=== PATIENT | female | born 1985 | race Hispanic/Latino ===

== ENCOUNTER 2018-08-18 00:28 | Emergency (ER) | payer OTHER ==
[2018-08-18 02:04] LABS: Absolute Lymphocytes (CBC) 2.7 K/uL (0.7-4.9); Absolute Monocytes 0.5 K/uL (0.1-1.3); Absolute Neutrophil 4.7 K/uL (1.8-8.0); Basophils % 0.8 % (0-1.3); Eosinophils % 2.3 % (0-4.4); Hematocrit 36.9 % (36.0-45.0); Lymphocytes % 33.2 % (15.3-44.8); MPV 9.5 fL (7.6-11.3); Monocytes % 6.1 % (3.3-12.3); RBC Red Blood Cell Count 4.23 M/uL (3.86-4.86)
[2018-08-18 02:15] LABS: BUN Blood Urea Nitrogen 7 mg/dL (7-18); Bicarbonate 28 mmol/L (21-32); Glucose Level 88 mg/dL (74-106); HCG, Quantitative 11 mIU/mL (1-3); Potassium 3.3 mmol/L (3.5-5.1); Sodium Level 143 mmol/L (136-145)
--- NOTE | 2018-08-18 02:58 | EDPHYS ---
Physician Documentation [facility] Name: Lani Davis Age: 33 yrs Sex: Female : 1985 Arrival Date: 08/18/2018 Time: 00:35 Bed 14 Private MD: ED Physician Bertrand Gagnon HPI: 08/18 03:12 This 33 yrs old Female presents to ER via Ambulatory with complaints of Vaginal tw4 Bleeding. 03:12 The patient presents with vaginal bleeding that is light. tw4 03:13 Onset: The symptoms/episode began/occurred 3 day(s) ago. Modifying factors: The tw4 symptoms are alleviated by nothing, the symptoms are aggravated by nothing. Associated signs and symptoms: The patient has no apparent associated signs or symptoms. Severity of symptoms: At their worst the symptoms were very mild. The patient has not experienced similar symptoms in the past. 03:13 Pt is not having abdominal pain or vaginal bleeding currently. 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 - Social history:: Smoking status: Patient/guardian denies using tobacco. - Ebola Screening: : No symptoms or risks identified at this time. ROS: 03:13 Positive for vaginal bleeding, Negative for injury or acute deformity, hematuria, tw4 pelvic pain, flank pain, burning with urination, difficulty urinating, bladder incontinence. 03:13 Constitutional: Negative for fever, chills, and weight loss, Cardiovascular: Negative for chest pain, palpitations, and edema, Respiratory: Negative for shortness of breath, cough, wheezing, and pleuritic chest pain, Abdomen/GI: Negative for abdominal pain, nausea, vomiting, diarrhea, and constipation, Back: Negative for injury and pain. Exam: 03:13 Constitutional: This is a well developed, well nourished patient who is awake, alert, tw4 and in no acute distress. Neuro: Awake and alert, GCS 15, oriented to person, place, time, and situation. Cranial nerves II-XII grossly intact. Motor strength 5/5 in all extremities. Sensory grossly intact. Cerebellar exam normal. Normal gait. Vital Signs: 01:27 BP 124 / 91; Pulse 72; Resp 16; Temp 98.5(O); Pulse Ox 100% on R/A; Weight 81.65 kg ak1 (R); Height 5 ft. 2 in. (157.48 cm) (R); Pain 6/10; 01:27 Body Mass Index 32.92 (81.65 kg, 157.48 cm) ak1 MDM: 01:18 Patient medically screened. 03:13 Data reviewed: vital signs, nurses notes. ED course: Pt was upset that she did not tw4 receive an ultrasound. Pt also stated that she felt that she needed an ultrasound because her previous physician told her that she was . I explained to patient that her urine as well as her serum test was negative. "Well cant I get the ultrasound just to make sure because my doctor told me that I was ". I told the patient that it was necessary to order an ultrasound in this case. Pt decided leave , refused exam and was belligerent to staff and did not sign her discharge papers.. 08/18 01:19 Order name: Quantitative Hcg; Complete Time: 02:25 08/18 02:25 Interpretation: Abnormal. 08/18 01:19 Order name: Abo/rh Typing 08/18 01:19 Order name: Basic Metabolic Panel; Complete Time: 02:26 08/18 01:19 Order name: CBC with Diff 08/18 02:20 Order name: Urine Dipstick--Ancillary (enter results) 08/18 02:20 Order name: Urine --Ancillary (enter results) 08/18 01:19 Order name: Urine Test (obtain specimen); Complete Time: 01:51 08/18 01:19 Order name: IV Saline Lock; Complete Time: 01:50 08/18 01:19 Order name: Labs collected and sent; Complete Time: 01:50 08/18 01:19 Order name: NPO; Complete Time: 01:23 08/18 01:19 Order name: Urine Dipstick-Ancillary (obtain specimen); Complete Time: 01:49 tw4 Administered Medications: No medications were administered Disposition: 08/18/18 02:57 Discharged to Home. Impression: Other abnormal uterine and vaginal bleeding. - Condition is Stable. - Discharge Instructions: Dysfunctional Uterine Bleeding. - Medication Reconciliation Form, Thank You Letter, Antibiotic Education, Prescription Opioid Use form. - Follow up: Private Physician; When: Upon discharge from the Emergency Department; Reason: If symptoms return, Recheck today's complaints, Continuance of care. - Problem is new. - Symptoms have improved. Signatures: Dispatcher [employer] EDAriella Chaves RN RN ak1 Bertrand Gagnon MD MD tw4 Corrections: (The following items were deleted from the chart) 03:24 02:57 08/18/2018 02:57 Discharged to Home. Impression: Other abnormal uterine and ak1 vaginal bleeding. Condition is Stable. Forms are Medication Reconciliation Form, Thank You Letter, Antibiotic Education, Prescription Opioid Use. Follow up: Private Physician; When: Upon discharge from the Emergency Department; Reason: If symptoms return, Recheck today's complaints, Continuance of care. Problem is new. Symptoms have improved. tw4
--- NOTE | 2018-08-18 02:58 | ER ---
Nurse's Notes [facility] Name: Lani Davis Age: 33 yrs Sex: Female : 1985 Arrival Date: 08/18/2018 Time: 00:35 Bed 14 Private MD: Diagnosis: Other abnormal uterine and vaginal bleeding Presentation: 08/18 01:24 Presenting complaint: Patient states: vaginal bleeding and cramps for 3 days after ak1 riding roller coasters at [employer]. pt stated she found out last week she is . pt stated she has bright red blood when she wipes. 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 pt LMP 06/10/18. Transition of care: patient was not received from another setting of care. Onset of symptoms is unknown. Risk Assessment: Do you want to hurt yourself or someone else? Patient reports no desire to harm self or others. Initial Sepsis Screen: Does the patient meet any 2 criteria? No. Patient's initial sepsis screen is negative. Does the patient have a suspected source of infection? No. Patient's initial sepsis screen is negative. Care prior to arrival: None. 01:24 Method Of Arrival: Ambulatory ak1 01:24 Acuity: JOVAN 3 ak1 Triage Assessment: 01:27 General: Appears in no apparent distress. Behavior is calm, cooperative. Pain: ak1 Complains of pain in pelvis. EENT: No signs and/or symptoms were reported regarding the EENT system. Neuro: No deficits noted. Cardiovascular: No deficits noted. Respiratory: No deficits noted. GI: No signs and/or symptoms were reported involving the gastrointestinal system. : Reports vaginal bleeding that is bright red, spotty, since 3 days [employer]. Derm: No signs and/or symptoms reported regarding the dermatologic system. Musculoskeletal: No signs and/or symptoms reported regarding the musculoskeletal system. MUSIC ARTIST: 01:27 LMP 06/10/2018, Verified, EDC 03/17/2019, Gestational age from LMP: 9 weeks 6 ak1 days Historical: - Allergies: 01:26 No Known Allergies; ak1 - Home Meds: 01:26 None [Active]; ak1 - PMHx: 01:26 None; ak1 - PSHx: 01:27 Cholecystectomy; ak1 - Immunization history:: Adult Immunizations unknown. - Social history:: Smoking status: Patient/guardian denies using tobacco. - Ebola Screening: : No symptoms or risks identified at this time. Screenin:29 Abuse screen: Denies threats or abuse. Denies injuries from another. Nutritional ak1 screening: No deficits noted. Tuberculosis screening: No symptoms or risk factors identified. Fall Risk None identified. Assessment: 01:30 : Urine is. ak1 02:38 Reassessment: pt informed of wait for lab work before US will come to do the study. ak1 03:17 Reassessment: pt with steady gait at discharge. pt refused discharge papers, pt refused ak1 discharge vitals, pt refused to sign discharge papers. pt informed of negative UPT and low HCGQ levels as to no US warranted. pt informed of need to follow up Monday with her MUSIC ARTIST, pt stated "I don't want to hear anymore" pt left. Vital Signs: 01:27 BP 124 / 91; Pulse 72; Resp 16; Temp 98.5(O); Pulse Ox 100% on R/A; Weight 81.65 kg ak1 (R); Height 5 ft. 2 in. (157.48 cm) (R); Pain 6/10; 01:27 Body Mass Index 32.92 (81.65 kg, 157.48 cm) ak1 ED Course: 00:35 Patient arrived in ED. ag3 01:11 Ariella Andrade, RN is Primary Nurse. ak1 01:18 Bertrand Gagnon MD is Attending Physician. tw4 01:26 Triage completed. ak1 01:27 Arm band placed on Patient placed in an exam room, on a stretcher, on pulse oximetry, ak1 Patient notified of wait time. 01:30 Patient has correct armband on for positive identification. Call light in reach. Side ak1 rails up X 1. Adult w/ patient. Pulse ox on. NIBP on. 01:50 Inserted saline lock: 22 gauge in right antecubital area, using aseptic technique. ak1 ,using aseptic technique. placed by Carina Blood collected. 03:07 No provider procedures requiring assistance completed. ak1 03:17 IV discontinued, intact, bleeding controlled, No redness/swelling at site. Pressure ak1 dressing applied. Administered Medications: No medications were administered Outcome: 02:57 Discharge ordered by . tw4 03:07 Condition: good ak1 03:21 Discharged to home ambulatory. ak1 03:21 Discharge instructions given to patient, pt who refused. 03:24 Patient left the ED. ak1 Signatures: Ariella Andrade RN RN ak1 Bertrand Gagnon MD MD tw4 Vielka Osuna ag3
[2018-08-18 04:52] LABS: Urine Blood 3+ (NEG); Urine Glucose NEGATIVE (NEG); Urine Protein 2+ (NEG); Urine Specific Gravity >1.030 (1.005-1.030); Urine pH 5.5 (5.0-7.0)
== END 2018-08-18 03:24 | disposition home or self-care (01) ==
LOC: ER 00:28
DX: O20.9 Hemorrhage in early pregnancy, unspecified (principal); N93.9 Abnormal uterine and vaginal bleeding, unspecified
CPT/HCPCS: 36415; 80048; 81003; 81025; 84702; 85025; 86900; 86901; 99283